=== PATIENT | female | born 1945 | race Caucasian/White ===

== ENCOUNTER 2018-02-14 16:49 | Inpatient (IN) ==
[2018-02-14] MEDS ORDERED: ALBUTEROL/IPRATROPIUM 3 ML NEB RESP TX PRN (21:37)
[2018-02-14] MEDS ORDERED: GLUCAGON 1 MG VIAL IM PRN ×2 (21:37)
[2018-02-14] MEDS ORDERED: DEXTROSE 50% 25 GM/50 ML VIAL IV PRN ×2 (21:37)
[2018-02-14] MEDS ORDERED: ALBUTEROL 2.5 MG/3 ML NEB RESP TX PRN (21:37)
[2018-02-14] MEDS: INSULIN REGULAR 100 UNIT/ML SUBCUT SCH (23:12)
[2018-02-15 01:51] LABS: Apearance,Urine Slightly Hazy (Clear); Bilirubin,Urine Negative (Negative); Blood, Urine Small mg/dL (Negative); Glucose,Urine (UA) Negative (Negative); Ketones,Urine Negative (Negative); Nitrite,Urine Negative (Negative); Protein,Urine Negative; Urine Color Yellow (Yellow); Urine Specific Gravity 1.011 (1.001-1.035)
[2018-02-15 01:52] LABS: Bacteria,Urine Occasional /HPF (Few); Mucus,Urine Occasional /LPF (Occasional); RBC,Urine 2 /HPF (0-4); Renal Epithelial Cells,Urine Occasional /HPF (<1); Squamous Epithelial Cell,Urine Occasional /HPF (0-10); Urine Urobilinogen < 2.0 EU/DL (0.2-1.0); WBC,Urine 1 /HPF (0-6)
[2018-02-15] MEDS: PIPERACILLIN/TAZOBACTAM 3,375 MG in SODIUM CHLORIDE 0.9% 100 ML IV SCH ×3 (03:49→19:54)
[2018-02-15] MEDS ORDERED: SODIUM CHLORIDE 0.9% 250 ML IV ONE (05:20)
[2018-02-15] MEDS: SODIUM CHLORIDE 0.9% 1,000 ML IV SCH ×2 (05:36→20:01)
[2018-02-15] MEDS: INSULIN REGULAR 100 UNIT/ML SUBCUT SCH ×4 (07:23→20:11)
[2018-02-15 07:36] LABS: Basophils # 0.1 10*3/uL (0.0-0.2); Basophils % 0.6 % (0.0-0.8); Eosinophils # 0.4 10*3/uL (0.0-0.87); Eosinophils % 3.8 % (0.00-10.9); Immature Granulocytes % 0.5 %; Immature Granulocytes Absolute 0.05 #; Lymphocytes # 2.4 10*3/uL (1.4-4.0); Lymphocytes % 24.7 % (21.3-54.2); Mean Corpuscular HGB Conc 30.3 GM/DL (32-36); Mean Corpuscular Hemoglobin 28 PG (27-34); Mean Corpuscular Volume 92.7 FL (87-102); Mean Platelet Volume 9.1 FL (9.6-12.0); Monocytes # 0.7 10*3/uL (0.11-0.8); Monocytes % 6.6 % (1.7-12.7); Neutrophils # 6.2 10*3/uL (1.4-7.4); Neutrophils % 63.8 % (38.7-73.9); Platelet Count 239 T/CUMM (130-400); Red Blood Count 3.56 MC/CUMM (3.8-5.5); Red Cell Distribution Width 13.1 % (9.3-17.3); White Blood Count 9.8 T/CUMM (4-12)
[2018-02-15 08:09] LABS: Alanine Aminotransferase 44 U/L (13-56); Albumin 2.5 G/DL (3.4-5.0); Alkaline Phosphatase 84 U/L (45-117); Aspartate Amino Transferase 260 U/L (0-37); Bilirubin,Total < 0.39 MG/DL (0.2-1.0); Blood Urea Nitrogen 20 MG/DL (7-18); Calcium 8.3 MG/DL (8.5-10.1); Glucose 104 MG/DL (74-106); Osmolality,Calculated 283.3 MOS/KG (273-304); Potassium 4.8 MMOL/L (3.5-5.1); Sodium 141 MMOL/L (136-145); Total Protein 6.1 G/DL (6.4-8.3)
[2018-02-15] MEDS: ENOXAPARIN 30 MG/0.3 ML SYRINGE SUBCUT SCH (08:14)
[2018-02-15] MEDS: PANTOPRAZOLE 40 MG TABLET PO SCH (08:14)
[2018-02-16] MEDS: PIPERACILLIN/TAZOBACTAM 3,375 MG in SODIUM CHLORIDE 0.9% 100 ML IV SCH (03:45)
[2018-02-16 05:19] LABS: Basophils # 0.1 10*3/uL (0.0-0.2); Basophils % 0.8 % (0.0-0.8); Eosinophils # 0.3 10*3/uL (0.0-0.87); Eosinophils % 3.5 % (0.00-10.9); Hematocrit 35.6 VOL% (35.7-47.0); Hemoglobin 11.1 GM/DL (12.0-16.0); Immature Granulocytes % 0.4 %; Immature Granulocytes Absolute 0.03 #; Lymphocytes # 2.3 10*3/uL (1.4-4.0); Lymphocytes % 29.1 % (21.3-54.2); Mean Corpuscular HGB Conc 31.2 GM/DL (32-36); Mean Corpuscular Hemoglobin 28 PG (27-34); Mean Corpuscular Volume 90.4 FL (87-102); Monocytes # 0.5 10*3/uL (0.11-0.8); Monocytes % 6.3 % (1.7-12.7); Neutrophils # 4.7 10*3/uL (1.4-7.4); Neutrophils % 59.9 % (38.7-73.9); Platelet Count 263 T/CUMM (130-400); Red Blood Count 3.94 MC/CUMM (3.8-5.5); Red Cell Distribution Width 12.4 % (9.3-17.3); White Blood Count 7.8 T/CUMM (4-12)
[2018-02-16 05:31] LABS: Calcium 8.5 MG/DL (8.5-10.1); Osmolality,Calculated 283.3 MOS/KG (273-304); Potassium 4.5 MMOL/L (3.5-5.1)
[2018-02-16] MEDS: INSULIN REGULAR 100 UNIT/ML SUBCUT SCH ×4 (07:26→21:08)
[2018-02-16] MEDS: PANTOPRAZOLE 40 MG TABLET PO SCH (08:16)
[2018-02-16] MEDS: ENOXAPARIN 30 MG/0.3 ML SYRINGE SUBCUT SCH (08:16)
[2018-02-16] MEDS: SODIUM CHLORIDE 0.9% 1,000 ML IV SCH ×2 (08:20→22:14)
[2018-02-16] MEDS ORDERED: MORPHINE ER 30 MG TABLET PO PRN (09:02)
[2018-02-16] MEDS ORDERED: SORBITOL 30 ML BOTTLE PO PRN (09:14)
[2018-02-16] MEDS: LEVOTHYROXINE 112 MCG TABLET PO SCH (09:55)
[2018-02-16] MEDS: MAGNESIUM OXIDE 400 MG TABLET PO SCH ×2 (09:55→21:04)
[2018-02-16] MEDS: LUBIPROSTONE 24 MCG CAPSULE PO SCH ×2 (09:55→21:04)
[2018-02-16] MEDS: DOXYCYCLINE HYCLATE 100 MG CAPSULE PO SCH ×2 (09:55→21:05)
[2018-02-16] MEDS: PARoxetine 20 MG TABLET PO SCH (09:55)
[2018-02-16] MEDS: ASPIRIN EC 81 MG TABLET PO SCH (09:55)
[2018-02-16] MEDS ORDERED: ALUMINUM/MAGNES/SIMETH MAX STR 30 ML UDCUP PO PRN (11:21)
[2018-02-16] MEDS ORDERED: MAGNESIUM SULF RIDER 2 GM in PREMIX 1 EACH IV ONE (11:31)
[2018-02-16] MEDS: METOPROLOL TARTRATE 25 MG TABLET PO SCH ×2 (12:10→21:05)
[2018-02-16] MEDS: GABAPENTIN 400 MG CAPSULE PO SCH ×2 (15:29→21:04)
[2018-02-16] MEDS ORDERED: traZODone 50 MG TABLET PO SCH (21:00)
[2018-02-17] MEDS: LEVOTHYROXINE 112 MCG TABLET PO SCH (05:30)
[2018-02-17 06:38] LABS: Basophils # 0.1 10*3/uL (0.0-0.2); Basophils % 0.9 % (0.0-0.8); Eosinophils # 0.2 10*3/uL (0.0-0.87); Eosinophils % 2.7 % (0.00-10.9); Hematocrit 36.3 VOL% (35.7-47.0); Hemoglobin 11.4 GM/DL (12.0-16.0); Immature Granulocytes % 0.6 %; Immature Granulocytes Absolute 0.05 #; Lymphocytes # 2.6 10*3/uL (1.4-4.0); Mean Corpuscular HGB Conc 31.4 GM/DL (32-36); Mean Corpuscular Hemoglobin 29 PG (27-34); Mean Corpuscular Volume 90.8 FL (87-102); Mean Platelet Volume 9.1 FL (9.6-12.0); Monocytes # 0.6 10*3/uL (0.11-0.8); Monocytes % 7.4 % (1.7-12.7); Neutrophils # 4.3 10*3/uL (1.4-7.4); Neutrophils % 55.4 % (38.7-73.9); Platelet Count 307 T/CUMM (130-400); Red Cell Distribution Width 12.6 % (9.3-17.3); White Blood Count 7.7 T/CUMM (4-12)
[2018-02-17 06:49] LABS: Calcium 8.4 MG/DL (8.5-10.1); Osmolality,Calculated 283.1 MOS/KG (273-304); Potassium 4.4 MMOL/L (3.5-5.1)
[2018-02-17 08:04] VITALS: BP 153/65
[2018-02-17] MEDS: INSULIN REGULAR 100 UNIT/ML SUBCUT SCH (08:06)
[2018-02-17] MEDS: PARoxetine 20 MG TABLET PO SCH (08:10)
[2018-02-17] MEDS: ENOXAPARIN 30 MG/0.3 ML SYRINGE SUBCUT SCH (08:11)
[2018-02-17] MEDS: METOPROLOL TARTRATE 25 MG TABLET PO SCH (08:11)
[2018-02-17] MEDS: DOXYCYCLINE HYCLATE 100 MG CAPSULE PO SCH (08:11)
[2018-02-17] MEDS: LUBIPROSTONE 24 MCG CAPSULE PO SCH (08:11)
[2018-02-17] MEDS: GABAPENTIN 400 MG CAPSULE PO SCH (08:11)
[2018-02-17] MEDS: ASPIRIN EC 81 MG TABLET PO SCH (08:11)
[2018-02-17] MEDS: PANTOPRAZOLE 40 MG TABLET PO SCH (08:12)
[2018-02-17] MEDS: MAGNESIUM OXIDE 400 MG TABLET PO SCH (08:12)
[2018-02-17] MEDS ORDERED: ALLOPURINOL 100 MG TABLET PO SCH (09:00)
[2018-02-17] MEDS: SODIUM CHLORIDE 0.9% 1,000 ML IV SCH (10:36)
== END 2018-02-17 12:31 | disposition home or self-care (01) | DRG 315 ==
LOC: N.CC 20:23 → SUATTDRO 20:23 → N.TELEN 02-16 10:47
PROVIDERS: ADMIT Internal Medicine; ATTEND Hospitalist